=== PATIENT | female | born 1985 | race Two or more races ===

== ENCOUNTER 2023-12-10 16:37 | Emergency (ER) | payer MEDICAID, OTHER ==
[~2023-12-10] VITALS: Ht 172.7 cm; Wt 56.8 kg
[2023-12-10] MEDS ORDERED: IBU600T PO (19:09)
[2023-12-10] MEDS ORDERED: NAP500T GT (19:09)
[2023-12-10] MEDS ORDERED: NAP500T PO (19:44)
[2023-12-10 19:55] VITALS: BP 135/82; TEMP 98.6
[2023-12-10 19:56] VITALS: PULSE 68; RESP 18; O2SAT 100
== END 2023-12-10 20:02 | disposition home or self-care (01) ==
LOC: ER 16:37
DX: S00.83XA Contusion of other part of head, initial encounter (principal); W17.89XA Other fall from one level to another, initial encounter; Y93.89 Activity, other specified; Y92.89 Other specified places as the place of occurrence of the external cause; Y99.8 Other external cause status
CPT/HCPCS: 70450